=== PATIENT | male | born 1955 | race Caucasian/White ===

== ENCOUNTER 2021-08-07 12:29 | Emergency (ER) | payer OTHER ==
[~2021-08-07] VITALS: Ht 182.9 cm; Wt 113.4 kg
[2021-08-07 13:06] VITALS: BP 149/86
[2021-08-07 13:10] VITALS: BP 149/86
--- NOTE | 2021-08-07 14:24 | ER.PDOC ---
General Chief Complaint: General Complaint Stated Complaint: CONGESTED/FEVER/COUGH/SORE THROAT Time seen by MD: 14:21 Source: patient Exam Limitations: no limitations History of Present Illness Initial Comments Fever, cough, runny nose, sore throat and body aches for 6 days. Timing/Duration: gradual Severity: moderate Associated Symptoms: fever/chills, runny nose, sore throat, cough Constitutional: see HPI EENTM: see HPI Respiratory: see HPI Cardiovascular: no symptoms reported Gastrointestinal: no symptoms reported All Other Systems: Reviewed and Negative Past Medical History Medical History: hypertension, other Surgical History: no surgical history Family History Significant Family History: no pertinent family hx Social History Smoking: non-smoker Alcohol Use: none Drug Use: none Physical Exam General Appearance: alert, no distress Eye: eyes nml inspection Nose: rhinorrhea Throat: pharynx nml, airway nml Neck: nml inspection, supple Respiratory: no resp.distress, breath sounds nml Abdomen: non-tender, no organomegaly CVS: reg rate & rhythm, heart sounds nml Skin: color nml, no rash, warm/dry Extremities: non-tender, nml ROM, no pedal edema NEURO/PSYCH: oriented x 3, CN's nml as tested, motor nml, sensation nml, mood/affect nml Results/Orders Results/Orders Orders - NICHOL PALENCIA MD Covid19 Antigen Sara Sanjana (08/07/21 13:04) Influenza A&B (08/07/21 13:04) Strep Screen (08/07/21 13:04) Vital Signs Date Time Temp Pulse Resp B/P (MAP) Pulse Ox O2 Delivery O2 Flow Rate FiO2 08/07/21 13:10 98.3 107 20 149/86 (107) 94 Room Air 08/07/21 13:06 98.3 107 20 94 08/07/21 13:06 98.3 107 20 Laboratory Tests Test 08/07/21 13:00 Influenza Type A Antigen NEGATIVE (NEG) Influenza Type B Antigen NEGATIVE (NEG) SARS-CoV-2 Antigen (Rapid) NEGATIVE (NEGATIVE) Group A Streptococcus Screen NEGATIVE (NEGATIVE) Progress Progress Patient is negative for flu, strep and COVID. ER DEPART Departure Time of Disposition: 14:23 Disposition: 01 HOME / SELF CARE / HOMELESS Impression: Primary Impression: Viral upper respiratory tract infection with cough Condition: Stable Referrals: PCP,UNKNOWN (PCP) PRIMARY CARE PROVIDER Additional Instructions: Mucinex DM [id number] as directed Afrin nose drops [id number] as directed Tylenol Follow-up with PCP 1 week Return to ED if worsening symptoms or concerns Duration or Time Spent with Pa: 10 min NICHOL PALENCIA MD Aug 07, 2021 14:24
[2021-08-07 14:40] VITALS: BP 142/78
== END 2021-08-07 14:40 | disposition home or self-care (01) ==
LOC: ER 12:29
DX: J06.9 Acute upper respiratory infection, unspecified (principal); B97.89 Other viral agents as the cause of diseases classified elsewhere; I10 Essential (primary) hypertension; Z20.822 Contact with and (suspected) exposure to COVID-19
CPT/HCPCS: 87070; 87426; 87804; 87880; 99283